=== PATIENT | female | born 1995 | race Caucasian/White ===

== ENCOUNTER 2016-07-25 23:40 | Emergency (ER) | payer OTHER ==
[~2016-07-25] VITALS: Ht 162.6 cm; Wt 96.2 kg
[~2016-07-25 23:40] MED LIST: BIRTH CONTROL
[2016-07-26 00:12] VITALS: BP 104/62
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
== END 2016-07-26 01:10 ==
LOC: ERH 23:40
DX: T22.212A Burn of second degree of left forearm, initial encounter (principal); X10.2XXA Contact with fats and cooking oils, initial encounter